=== PATIENT | female | born 1970 | race Caucasian/White ===

== ENCOUNTER 2020-06-28 12:33 | Emergency (ER) | payer BC, SELFPAY ==
[2020-06-28 12:40] VITALS: BP 147/76; PULSE 94; RESP 16; TEMP 37; O2SAT 96; BMI 48.4
--- NOTE | 2020-06-28 12:52 | HMH.EDUTC ---
[facility] Disposition Clinical Impression: COVID-19 Disposition: Home, Self-Care Condition on Discharge: Good Instructions: Preventing the Spread of Coronavirus Discharge Instructions Additional Instructions: Drink plenty of fluids. Take tylenol for pain or fever. Follow up with your regular doctor. GO TO THE ER FOR ANY WORSENING SYMPTOMS Referrals: Varinder Hidalgo [Primary Care Provider] - Forms: Work/School Release Time of Disposition: 12:58 Medical Decision Making - Medical Records Medical records reviewed: No: I reviewed the patient's medical records. - Santos Inquiry Pt receiving controlled substance: No Vital Signs: 06/28/20 12:40 06/28/20 13:12 Temperature 98.6 F 98.6 F Temperature Source Oral Pulse Rate 94 H Pulse Rate [Right Brachial] 94 H Respiratory Rate 16 16 Blood Pressure 147/76 H Blood Pressure [Right Arm] 147/76 H Blood Pressure Mean [Right Arm] 99 Blood Pressure Source [Right Arm] Automatic Cuff Blood Pressure Position [Right Arm] Sitting 02 Sat by Pulse Oximetry 96 Oxygen Delivery Method Room Air Orders (Tests/Meds): ORDERS Category Date Time Status Covid-19 Nasal PCR Sendout Deondre Routine Lab 06/28/20 12:45 Received [facility] HPI - General Stated complaint: cough,congested Time Seen by Provider: 06/28/20 12:52 - History of Present Illness Provider Complaint: She was diagnosed with covid last week. She has been symptom free for the past 4 days at least, but she needs 2 negative test to be allowed to go back to work. - Related Data Allergies Allergy/AdvReac Type Severity Reaction Status Date / Time Penicillins Allergy Verified 06/28/20 13:12 [facility] History - Hepatitis A Screen Attestation statement:: This patient has been screened for Hepatitis A risk factors. I have reviewed the patient's past medical history: Yes ROS Obtained: Yes All systems reviewed & no additional complaints - Constitutional Constitutional: Reports system reviewed and no additional complaints, except as docu - Eyes Eyes: Reports system reviewed and no additional complaints, except as docu - ENT Ears, Nose, Mouth, and Throat: Reports system reviewed and no additional complaints, except as docu - Cardiovascular Cardiovascular: Reports system reviewed and no additional complaints, except as docu - Respiratory Respiratory: Yes system reviewed and no additional complaints, except as docu - Gastrointestinal Gastrointestingal: Reports: system reviewed and no additional complaints, except as docu Physical Exam - General General appearance: alert, in no apparent distress - Head Head exam: atraumatic, normocephalic, normal inspection - Eye Eye exam: Present: normal appearance, PERRL, EOMI - ENT ENT exam: Present: normal exam, normal oropharynx, mucous membranes moist, TM's normal bilaterally, normal external ear exam - Neck Neck exam: Present: normal inspection, full ROM, trachea midline. Absent: meningismus, lymphadenopathy - Chest Chest inspection: Present: normal inspection, symmetric chest wall rise. Absent: tenderness - Respiratory Respiratory exam: Present: normal lung sounds bilaterally. Absent: respiratory distress - Cardiovascular Cardiovascular exam: Present: regular rate, normal rhythm. Absent: JVD - Abdominal Exam Abdominal exam: Present: soft, normal bowel sounds. Absent: distention, tenderness, guarding - Extremities Exam Extremities exam: Present: normal inspection, full ROM, normal capillary refill. Absent: calf tenderness - Back Exam Back exam: Present: normal inspection. Absent: tenderness - Neurological Exam Neurological exam: Present: alert, oriented X3 - Psychiatric Psychiatric exam: Present: normal affect, normal mood - Skin Skin exam: Present: warm, dry, intact, normal color - Lymphatic Lymphatic Findings: no adenopathy
[2020-06-28 13:12] VITALS: BP 147/76; PULSE 94; RESP 16; TEMP 37; O2SAT 96
[2020-06-29 00:07] LABS: Adenovirus,PCR Not Detected (NotDetected); Bordetella Pertussis Not Detected (NotDetected); Chlamydophila Pneumoniae, PCR Not Detected (NotDetected); Coronavirus 229E Not Detected (NotDetected); Coronavirus NL63 Not Detected (NotDetected); Coronavirus OC43 Not Detected (NotDetected); Coronovirus HKU1,PCR Not Detected (NotDetected); Human Metapneumovirus Not Detected (NotDetected); Influenza A, PCR Not Detected (NotDetected); Influenza AH1, 2009 Not Detected (NotDetected); Influenza AH1, PCR Not Detected (NotDetected); Influenza AH3,PCR Not Detected (NotDetected); Influenza B, PCR Not Detected (NotDetected); Mycoplasma Pneumoniae, PCR Not Detected (NotDetected); Parainfluenza 1, PCR Not Detected (NotDetected); Parainfluenza 2, PCR Not Detected (NotDetected); Parainfluenza 3, PCR Not Detected (NotDetected); Parainfluenza 4, PCR Not Detected (NotDetected); Respiratory Syncytial Virus Not Detected (NotDetected); Rhinovirus/Enterovirus Not Detected (NotDetected)
[2020-06-29 01:55] LABS: Coronavirus 19, PCR Detected (NotDetected)
== END 2020-06-28 13:13 | disposition home or self-care (01) ==
PROVIDERS: Emergency Provider Nurse Practitioner Family; PCP Family Medicine
DX: U07.1 COVID-19 (principal)
CPT/HCPCS: 87581; 87633; 87798; 99201; U0003; U0004

== ENCOUNTER 2022-10-09 07:00 | Outpatient (RCR) | payer BC, SELFPAY | END 2022-11-05 13:00 | disposition home or self-care (01) | LOC: PT 07:00 | PROVIDERS: PCP Family Medicine; Visit Provider Orthopaedic Surgery | DX: M79.645 Pain in left finger(s) (principal); M25.642 Stiffness of left hand, not elsewhere classified | CPT/HCPCS: 97010; 97014; 97033; 97035; 97110; 97140; 97163; G0283 ==